=== PATIENT | male | born 1945 | race Caucasian/White ===

== ENCOUNTER 2020-01-03 14:05 | Outpatient (CLI) | payer OTHER | END 2020-01-03 14:06 | disposition home or self-care (01) | LOC: COV 14:05 | PROVIDERS: ATTEND Ophthalmology | DX: Z01.818 Encounter for other preprocedural examination (principal); H25.811 Combined forms of age-related cataract, right eye; Z20.828 Contact with and (suspected) exposure to other viral communicable diseases ==

== ENCOUNTER 2020-01-09 08:01 | Day surgery (SDC) | payer OTHER ==
[~2020-01-09 08:01] MED LIST: CYCLOPENTOLATE 1% OPHTH DROPS 2 ML ONE; KETOROLAC 0.45% OPHTH DROPS ONE; PHENYLEPHRINE 2.5% OPHTH 2 ML DROPS ONE; PROPARACAINE 0.5% OPHTH DROPS 15 ML ONE
[2020-01-09] MEDS ORDERED: fentaNYL 100 MCG/2 ML VIAL IVP ONE (08:02)
[2020-01-09] MEDS ORDERED: MIDAZOLAM 2 MG/2 ML VIAL IVP ONE (08:02)
[2020-01-09] MEDS ORDERED: LACTATED RINGERS 1,000 ML IV ONE ×2 (08:07→09:34)
--- NOTE | 2020-01-09 08:56 | ANESTHESIA ---
Pre-Anesthesia VS, & Labs - Diagnosis right cataract - Procedure right cataract extraction with iol Vital Signs: Temp Pulse Resp BP Pulse Ox 36.3 C L 69 18 149/79 H 98 01/09/20 08:07 01/09/20 08:07 01/09/20 08:07 01/09/20 08:07 01/09/20 08:07 Height: 5 ft 10 in Weight (kg): 84.9 kg Body Mass Index: 26.8 BMI Classification: Overweight - NPO >8 hours - Lab Results Current Lab Results: Laboratory Tests 01/09/20 08:20: POC Whole Bld Glucose 98 Home Medications and Allergies Home Medications: Ambulatory Orders Ascorbic Acid [Vitamin C] 1,000 mg PO DAILY 01/08/20 Cholecalciferol [Vitamin D3] 25 mcg PO DAILY 01/08/20 Cyanocobalamin (Vitamin B-12) [Vitamin B-12] 1,000 mcg PO DAILY 01/08/20 Dabigatran Etexilate Mesylate [Pradaxa] 150 mg PO BID 01/08/20 Folic Acid 1 mg PO DAILY 01/08/20 Atorvastatin Calcium 40 mg PO DAILY 03/23/14 Sildenafil Citrate [Viagra] 100 mg PO PRN PRN 03/23/14 lisinopriL [Lisinopril] 40 mg PO DAILY 03/23/14 Metformin HCl [Fortamet] 500 mg PO DAILY 02/28/17 Metoprolol Tartrate [Lopressor] 12.5 mg PO BID 02/28/17 Ascorbic Acid [Vitamin C] 1,000 mg PO DAILY 01/08/20 Cholecalciferol [Vitamin D3] 25 mcg PO DAILY 01/08/20 Cyanocobalamin (Vitamin B-12) [Vitamin B-12] 1,000 mcg PO DAILY 01/08/20 Dabigatran Etexilate Mesylate [Pradaxa] 150 mg PO BID 01/08/20 Folic Acid 1 mg PO DAILY 01/08/20 Allergies/Adverse Reactions: Allergies Allergy/AdvReac Type Severity Reaction Status Date / Time No Known Drug Allergies Allergy Verified 01/08/20 12:32 Anes History & Medical History - Anesthetic History Anesthesia Complications: reports: No previous complications - Medical History Cardiovascular: reports: Hypertension, High cholesterol, Coronary artery disease Pulmonary: reports: None Gastrointestinal: reports: None Urinary: reports: None Musculoskeletal: reports: None Endocrine/Autoimmune: reports: Type 2 diabetes Blood Disorders: reports: None Skin: reports: None Smoking Status: Never smoker - Surgical History General: Hiatal hernia repair Cardiothoracic: Vascular surgery Dermatologic: Skin cancer surgery Exam General: Alert Dental: WNL Mallampati classification: II Respiratory: Lungs clear Cardiovascular: Regular rate Plan Anesthesia Type: MAC Consent for Procedure(s) Verified and Reviewed: Yes Code Status: Attempt Resuscitation ASA classification: 3-Severe systemic disease Is this case an emergency?: No
[2020-01-09] MEDS ORDERED: EPINEPHrine 1 MG/ML AMP IR ONE (09:23)
[2020-01-09] MEDS ORDERED: BRIMONIDINE 0.2% OPHTH DROPS 5 ML OPTH ONE (09:23)
[2020-01-09] MEDS ORDERED: CHONDR SULF/HYALURONATE SYRINGE IO ONE (09:28)
[2020-01-09] MEDS ORDERED: TIMOLOL 0.5% OPHTH DROPS OPTH ONE (09:35)
[2020-01-09] MEDS ORDERED: PROPARACAINE 0.5% OPHTH DROPS 15 ML EACHEYE ONE (09:35)
[2020-01-09] MEDS ORDERED: TRIAMCIN/MOXIFLOX OPHTHALMIC 0.6 ML VIAL IO ONE ×2 (09:35→12:24)
[2020-01-09] MEDS ORDERED: BSS/LIDOCAINE/EPINEPHRINE 1 ML SYRINGE IO ONE (09:35)
[2020-01-09] MEDS ORDERED: VANCOMYCIN OPHTHALMI 8MG/0.8ML 8 MG/0.8 ML SYRINGE IO ONE ×2 (09:36→12:23)
--- NOTE | 2020-01-09 09:37 | ANESTHESIA POST OP EVALUATION ---
Anesthesia Post Eval - Post Anesthesia Eval Vitals: Last Vital Signs Temp 36.3 C L 01/09/20 08:07 Pulse 69 01/09/20 08:07 Resp 18 01/09/20 08:07 BP 149/79 H 01/09/20 08:07 Pulse Ox 98 01/09/20 08:07 CV Function Including HR & BP: positive: Stable Pain Control: positive: Satisfactory Nausea & Vomiting: positive: Negative Mental Status: positive: Patient Participates Respiratory Status: Airway Patent Hydration Status: Satisfactory
[2020-01-09 09:48] VITALS: BP 114/72
--- NOTE | 2020-01-09 11:36 | OPERATIVE REPORT ---
DATE OF SERVICE: 01/09/2020 Physician: Jeremias Dean MD PREOPERATIVE DIAGNOSIS: Visually significant cataract, right eye. This was his first cataract surge ry. POSTOPERATIVE DIAGNOSIS: Visually significant cataract, right eye. This was his first cataract surg kandace. PROCEDURE: Phacoemulsification with posterior chamber intraocular lens implant, right eye. SURGEON: Jeremias Dean MD ANESTHESIA: Monitored anesthesia care. COMPLICATIONS: None. OPERATIVE INDICATIONS: This is a 74-year-old man with progressive vision loss in the right eye due t o 2+ nuclear sclerotic and 2+ cortical cataract. Best corrected visual acuity was 20/30, with glare to 20/80 in the right eye. Indications for surgery are overall decrease in vision, difficulty seeing words on a computer screen, difficulty reading, difficulty seeing words, closed caption or game scor es on TV, difficulty seeing street signs, difficulty driving in low light or at night, difficulty dri ving at night because of headlights from other vehicles, difficulty with glare or bright lights in an y situation, and difficulty tracking a golf ball. He was consented at length concerning risks and be nefits of cataract surgery, after which he expressed a desire to proceed with surgery. OPERATIVE PROCEDURE: Patient was taken to OR #3 and placed under monitored anesthesia care. A surgi yee timeout was conducted confirming correct patient, correct procedure, and correct surgical site. He was given topical anesthesia, and prepped and draped in the usual sterile fashion. The eye was en tered at the 12, and 9 o'clock positions. Intracameral Shugarcaine was injected into the anterior ch li, followed by Viscoat. A continuous-tear curvilinear capsulorrhexis was performed. Nucleus was hydrodissected and phacoemulsified. The cortex was evacuated using automated infusion and aspiratio n. Provisc was injected in the capsular bag, and an 18.5 diopter intraocular lens inserted in the ba g. Infusion and aspiration was used to evacuate the viscoelastic materials. The eye was inflated to physiologic pressure using balanced salt solution and found to be watertight. Approximately 0.25 mL of a mixture of triamcinolone and moxifloxacin was injected transsclerally into the vitreous in infe rotemporal quadrant. An additional 0.55 mL of a mixture of triamcinolone, moxifloxacin and vancomyci n was injected subconjunctivally in the superior quadrant for infection and inflammation prophylaxis. Wound integrity was checked with Weck-Lary sponges. Patient was taken from the Operating Room in go od condition and given postoperative instructions. TD: 01/09/2020 09:48
[2020-01-09] MEDS ORDERED: TIMOLOL 0.5% OPHTH DROPS ONE (12:23)
[2020-01-09] MEDS ORDERED: BRIMONIDINE 0.2% OPHTH DROPS 5 ML ONE (12:23)
[2020-01-09] MEDS ORDERED: BSS/LIDOCAINE/EPINEPHRINE 1 ML SYRINGE ONE (12:23)
== END 2020-01-09 08:02 | disposition home or self-care (01) ==
LOC: SDS 08:01
PROVIDERS: ATTEND Ophthalmology
DX: E11.36 Type 2 diabetes mellitus with diabetic cataract (principal); H25.811 Combined forms of age-related cataract, right eye; I48.91 Unspecified atrial fibrillation; E78.00 Pure hypercholesterolemia, unspecified; I11.0 Hypertensive heart disease with heart failure; I50.9 Heart failure, unspecified; Z79.84 Long term (current) use of oral hypoglycemic drugs; Z79.02 Long term (current) use of antithrombotics/antiplatelets
CPT/HCPCS: 66984; A9270; J3490; J7120; V2632